=== PATIENT | male | born 1955 | race Caucasian/White ===

== ENCOUNTER 2019-11-06 10:52 | Inpatient (IN) | payer MEDICARE, OTHER ==
[~2019-11-06] VITALS: Ht 177.8 cm; Wt 81.6 kg
[2019-11-06] VITALS (11 sets, daily range): BP systolic 80–117; BP diastolic 57–85
[2019-11-06] MEDS ORDERED: DILTIAZEM HCL VIAL 5 ML ONE (11:20)
[2019-11-06] MEDS ORDERED: VITAMIN D250 MCG PO (11:29)
[2019-11-06] MEDS ORDERED: HYDROCHLOROTHIA25 MG PO (11:29)
[2019-11-06] MEDS ORDERED: METOPROLOL TART50 MG PO (11:29)
[2019-11-06] MEDS ORDERED: XARELTO20 MG PO (11:29)
[2019-11-06] MEDS ORDERED: ATORVASTATIN CA20 MG PO (11:29)
[2019-11-06] MEDS ORDERED: AMITRIPTYLINE H10 MG PO (11:29)
[2019-11-06] MEDS ORDERED: FLOMAX0.4 MG PO (11:29)
[2019-11-06] MEDS ORDERED: DILTIAZEM HCL 5 MG/ML 5 ML VIAL IV ONE (11:30)
[2019-11-06 11:34] LABS: BASOPHILS % 0.2 % (0.0-1.0); EOSINOPHILS % 0.2 % (0.0-6.0); HEMATOCRIT 33.7 % (38.2-49.6); HEMOGLOBIN 10.7 g/dL (14.0-18.0); LYMPHOCYTES % 5.3 % (18.0-39.1); MEAN CORPUSCULAR HEMOGLOBIN 27.3 pg (28-32); MEAN CORPUSCULAR HGB CONC 31.8 g/dL (31-35); MONOCYTES # (AUTO) 2.4 (0.2-0.8); MONOCYTES % 12.3 % (4.4-11.3); NEUTROPHILS # (AUTO) 15.9 (2.1-6.9); PLATELET COUNT 287 x10e3/uL (140-360); RED BLOOD COUNT 3.92 x10e6/uL (4.3-5.7); RED CELL DISTRIBUTION WIDTH 13.4 % (11.7-14.4)
[2019-11-06] MEDS ORDERED: AMIODARONE HCL 900 MG in DEXTROSE 5% 500ML 500 ML IV SCH (11:45)
[2019-11-06] MEDS ORDERED: NEXTERONE IV 150MG/100ML PREMIX BAG IV SCH (11:45)
[2019-11-06 12:13] LABS: INR 3.4
[2019-11-06 12:14] LABS: PARTIAL THROMBOPLASTIN TIME 68.9 seconds (23.8-35.5)
[2019-11-06 12:15] LABS: ALBUMIN 3.1 g/dL (3.5-5.0); ALBUMIN/GLOBULIN RATIO 0.7 (0.8-2.0); CALCIUM 9.3 mg/dL (8.4-10.2); CREATININE, SERUM 1.47 mg/dL (0.72-1.25)
[2019-11-06 12:33] LABS: ANION GAP 16.8 mmol/L (8-16)
[2019-11-06 12:34] LABS: POTASSIUM 2.8 mmol/L (3.5-5.1)
[2019-11-06] MEDS ORDERED: POTASSIUM CHLORIDE 20 MEQ TAB CR PO STA (12:46)
--- NOTE | 2019-11-06 12:52 | Diagnostic Imaging Report ---
EXAM: CHEST SINGLE (PORTABLE) DATE: 11/06/2019 11:20 AM INDICATION: Shortness of breath, weakness COMPARISON: None Impression: The trachea is midline. The lungs are symmetrically expanded without evidence for large focal consolidation, pneumothorax, or significant pleural effusion. The cardiac silhouette appears prominent which may be secondary to technique. Tortuosity/ectasia noted of the thoracic aorta. No acute osseous abnormality is identified. Signed by: Dr. Marcial Landaverde MD on 11/06/2019 12:48 PM
[2019-11-06 13:01] LABS: CREATINE KINASE MB 5.4 ng/mL (0-5.0)
[2019-11-06] MEDS ORDERED: SODIUM CHLORIDE 0.9% 1000ML 1,000 ML IV STA (13:11)
[2019-11-06] MEDS ORDERED: CEFTRIAXONE SOD 1 GM/NS 50 ML 50 ML IV ONE (13:15)
[2019-11-06] MEDS ORDERED: ACETAMINOPHEN 650 MG SUPP PR ONE (13:27)
[2019-11-06] MEDS ORDERED: CEFTRIAXONE SOD 1 GM VIAL ONE (13:27)
[2019-11-06] MEDS ORDERED: ACETAMINOPHEN 325 MG SUPP PR ONE (13:45)
[2019-11-06] MEDS ORDERED: VANCOMYCIN 1GM/NS 250 ML 250 ML IV ONE (15:00)
[2019-11-06 15:22] LABS: BILIRUBIN,URINE 1+ (NEGATIVE); CLARITY,URINE TURBID (CLEAR); COLOR,URINE RED (YELLOW); KETONES,URINE 1+ (NEGATIVE); LEUKOCYTE ESTERASE ,URINE NEGATIVE (NEGATIVE); NITRITE,URINE NEGATIVE (NEGATIVE); PROTEIN,URINE DIPSTICK >=300 (NEGATIVE); RBC,URINE 21-50 /HPF (0-5); URINE UROBILINOGEN 0.2 mg/dL (0.2 - 1)
[2019-11-06] MEDS ORDERED: MORPHINE SULFATE 2 MG/ML SYR 1ML IV PRN (16:30)
[2019-11-06] MEDS ORDERED: DIGOXIN INJ 0.25 MG/ML 2 ML AMP IV PRN (16:45)
[2019-11-06] MEDS ORDERED: CEFEPIME 1GM/NS 0.9% 50 ML 50 ML IV SCH (17:00)
[2019-11-06 17:04] LABS: BASOPHILS % 0.1 % (0.0-1.0); EOSINOPHILS # (AUTO) 0.2 (0.0-0.4); HEMATOCRIT 32.9 % (38.2-49.6); HEMOGLOBIN 10.1 g/dL (14.0-18.0); LYMPHOCYTES # (AUTO) 1.3 (1.0-3.2); LYMPHOCYTES % 17.8 % (18.0-39.1); MEAN CORPUSCULAR HEMOGLOBIN 27.7 pg (28-32); MEAN CORPUSCULAR HGB CONC 30.7 g/dL (31-35); MEAN CORPUSCULAR VOLUME 90.1 fL (81-99); MONOCYTES # (AUTO) 0.2 (0.2-0.8); MONOCYTES % 2.9 % (4.4-11.3); NEUTROPHILS # (AUTO) 5.5 (2.1-6.9); NEUTROPHILS % 75.7 % (38.7-80.0); PLATELET COUNT 203 x10e3/uL (140-360); RED BLOOD COUNT 3.65 x10e6/uL (4.3-5.7); RED CELL DISTRIBUTION WIDTH 13.6 % (11.7-14.4)
[2019-11-06] MEDS ORDERED: LORAZEPAM INJ 2 MG/ML VIAL ONE (17:26)
[2019-11-06] MEDS: METOPROLOL TARTRATE 50 MG TAB PO SCH (17:30)
[2019-11-06] MEDS: LORAZEPAM INJ 2 MG/ML VIAL IV PRN (17:31)
[2019-11-06] MEDS ORDERED: ONDANSETRON HCL INJ 2MG/ML 2ML 2 MG/ML VIAL IV PRN (17:45)
--- NOTE | 2019-11-06 17:46 | Consultation ---
DATE OF CONSULTATION: HISTORY OF PRESENT ILLNESS: This is a 64-year-old white male, comes into the emergency room with shortness of breath. The patient who does not provide good information and was brought here with shortness of breath and cough. The patient comes in with the above complaint, where in the mid of COVID-19 epidemic. The patient is being admitted with shortness of breath. On admission, his white count 19.6, hemoglobin 10. Sodium 137, potassium 2.8, creatinine 1.47. Liver enzyme within normal limit. CK 864, had a chest x-ray, which showed symmetrical expanding without evidence of large consolidation. MEDICATION LIST: The patient is currently on: 1. Amiodarone. 2. Cefepime. 3. Vancomycin. REVIEW OF SYSTEMS: The patient is in short of breath, has fever. The patient is currently being sick for some time. PAST MEDICAL HISTORY: Congestive heart failure. PAST SURGICAL HISTORY: Denies. ALLERGIES: NKA. SOCIAL HISTORY: There is no smoking, drug abuse, or alcohol abuse. PHYSICAL EXAMINATION: GENERAL: Currently alert, oriented, febrile. HEENT: Not icteric. NECK: Supple. CHEST: Few rhonchi bilateral. HEART: S1, S2. No S3, S4 or murmur. ABDOMEN: Soft. Bowel sounds present. No tenderness. EXTREMITIES: No edema. SKIN: No rash. IMPRESSION: 1. Sepsis on admission concerned about pneumonia, community acquired, concerned about COVID. 2. Acute on chronic congestive heart failure. I agree with blood cultures, urine cultures, sputum cultures. We will check COVID-19, the supportive care. We will put on vancomycin and cefepime and we will wait for the blood cultures. Recheck CBC. Recheck Chem panel. We will follow. MD CARISA Dean/LORENA /[id number]
[2019-11-06] MEDS: METOPROLOL TARTRATE INJ 1 MG/ML VIAL IV PRN (17:55)
--- NOTE | 2019-11-06 17:57 | Consultation ---
DATE OF CONSULTATION: Pulmonary Critical Care Consultation CHIEF COMPLAINT: Fever, elevated white blood cell count, and urethral bleeding. HISTORY OF PRESENT ILLNESS: The patient is a 64-year-old man. He has a history of a prior nephrectomy for kidney cancer. He also has a history of atrial fibrillation and is on Xarelto. Approximately 6 weeks ago, he was hospitalized at [facility] for urological problems. He had an indwelling Lanza catheter when he was sent home. Over the past several days, he has had some increased temperature. He has had increased malaise and some lower abdominal pain. He has not had any nausea or vomiting. He has not had any dyspnea or cough. Apparently, he pulled out his Lanza this morning and when he came to the emergency department, he had some urethral bleeding. The emergency department placed a coude catheter, but he has continued to bleed from the urethra around the catheter. PAST SURGICAL HISTORY: 1. Status post nephrectomy. 2. Possible history of prior interventions for benign prostatic hypertrophy. PAST MEDICAL HISTORY: 1. Atrial fibrillation. 2. Benign prostatic hypertrophy. 3. Hypercholesterolemia. ALLERGIES: THERE ARE NO KNOWN DRUG ALLERGIES. FAMILY HISTORY: Noncontributory. SOCIAL HISTORY: There is no information available right now about his smoking or drinking. REVIEW OF SYSTEMS: The patient did have fevers at home. He may have had some increased confusion. He is not having headache or neck pain. He denies chest pain or cough. He is not having any abdominal pain. He denies nausea or vomiting. He does have urethral bleeding and pain in his urethral area. He has a coude catheter in place. He is not having any focal neurological problems. PHYSICAL EXAMINATION: VITAL SIGNS: The T-max is 101.7. The heart rate is 132, but irregularly irregular. The blood pressure is 104/78. Respiratory rate is normal. Saturation is 100% on room air. HEENT: Shows no facial swelling or erythema. LYMPHATIC: Shows no submandibular, cervical, or supraclavicular adenopathy. CARDIAC: Reveals an irregularly irregular rhythm with a normal S1 and S2. There are no murmurs or rubs heard. RESPIRATORY: Auscultation of lungs reveal decreased breath sounds at the bases. There is no wheezing. ABDOMEN: Soft and nontender. There is no rebound or guarding. EXTREMITIES: Show no leg edema or calf tenderness. There is a coude catheter in place. There is bleeding from the urethral meatus around the catheter. There is about 200 mL of blood under his genital area on the bed. NEUROLOGICAL: Shows no focal abnormalities. LABORATORY DATA: White blood cell count is 19.6, hemoglobin is 10.7, and the platelet count is 287. The BUN to creatinine ratio is 16 to 1.47. The potassium is 2.8 and the albumin is 3.1. RADIOGRAPHIC DATA: Chest x-ray shows no active disease. IMPRESSION: 1. Urinary tract infection with indwelling catheter and sepsis present on admission. 2. Anemia secondary to acute blood loss from urethral bleeding. 3. Urethral trauma with ongoing bleeding. 4. Acute kidney injury. 5. Hypokalemia. 6. Atrial fibrillation with rapid ventricular response. PLAN: 1. The patient will be gilmore cultured and received broad-spectrum antibiotics to cover for healthcare-acquired organisms. 2. IV fluids in conjunction with the sepsis protocol. 3. Monitor lactic acid. 4. Type and cross for packed red blood cells. 5. Monitor blood counts and transfuse as needed. 6. Stat Urology consultation. 7. Case discussed with the emergency department staff and nursing staff as well as with the patient and Dr. Sabillon. Myles Olson MD [facility]/LORENA /[id number]
[2019-11-06 18:33] LABS: LYMPHOCYTES % (MANUAL) 20 % (19-48); MONOCYTES % (MANUAL) 1 % (3.4-9.0); NEUTROPHILS % (MANUAL) 79 % (40-74); PLATELET ESTIMATE ADEQUATE; PLATELET MORPHOLOGY COMMENT FEW GIANT; RBC MORPHOLOGY COMMENT NORMAL
[2019-11-06] MEDS: DIGOXIN INJ 0.25 MG/ML 2 ML AMP IV SCH ×2 (20:00→22:00)
[2019-11-06] MEDS ORDERED: ATORVASTATIN 20 MG TAB PO SCH (21:00)
[2019-11-06] MEDS ORDERED: POTASSIUM CHLORIDE 20MEQ/100ML 200 ML IV ONE (21:15)
[2019-11-06] MEDS ORDERED: SODIUM CHLORIDE 0.9% 1000ML 500 ML IV ONE (21:15)
[2019-11-06] MEDS ORDERED: SODIUM CHLORIDE 0.9% 1000ML 1,000 ML ONE (21:15)
[2019-11-06 21:54] LABS: BASOPHILS # (AUTO) 0.1 (0.0-0.1); BASOPHILS % 0.2 % (0.0-1.0); EOSINOPHILS # (AUTO) 0.2 (0.0-0.4); EOSINOPHILS % 0.5 % (0.0-6.0); HEMATOCRIT 27.6 % (38.2-49.6); HEMOGLOBIN 8.7 g/dL (14.0-18.0); LYMPHOCYTES # (AUTO) 0.6 (1.0-3.2); LYMPHOCYTES % 1.8 % (18.0-39.1); MEAN CORPUSCULAR HEMOGLOBIN 27.4 pg (28-32); MEAN CORPUSCULAR HGB CONC 31.5 g/dL (31-35); MEAN CORPUSCULAR VOLUME 87.1 fL (81-99); MONOCYTES % 6.1 % (4.4-11.3); NEUTROPHILS # (AUTO) 29.8 (2.1-6.9); NEUTROPHILS % 90.1 % (38.7-80.0); PLATELET COUNT 225 x10e3/uL (140-360); RED BLOOD COUNT 3.17 x10e6/uL (4.3-5.7); RED CELL DISTRIBUTION WIDTH 13.5 % (11.7-14.4)
[2019-11-06] MEDS ORDERED: LIDOCAINE JELLY 2% 10ML URO-JET TOP ONE (22:15)
[2019-11-06 22:18] LABS: CREATINE KINASE MB 29.1 ng/mL (0-5.0)
[2019-11-06] MEDS ORDERED: IOPAMIDOL 370 MG/ML 200 ML INFUS..BTL INJ ONE (22:58)
[2019-11-06] MEDS ORDERED: SODIUM CHLORIDE 0.9% 250ML 250 ML ONE (22:59)
[2019-11-07] VITALS (18 sets, daily range): BP systolic 78–124; BP diastolic 58–86
--- NOTE | 2019-11-07 01:43 | Diagnostic Imaging Report ---
EXAM: CT abdomen and pelvis without and with contrast - Hematuria protocol INDICATION: Hematuria. COMPARISON: None. TECHNIQUE: Abdomen and pelvis were scanned in prone position without and with contrast. Delayed phase imaging obtained. Coronal and sagittal reformations were obtained. Routine protocol was performed. Scan was performed when during portal venous phase. IV CONTRAST: 150 mL of Isovue 150 ORAL CONTRAST: Water RADIATION DOSE: Total DLP: 1349 mGy*cm COMPLICATIONS: None FINDINGS: LINES and TUBES: A Lanza catheter has been partially retracted, and the bulb terminates within the posterior urethra. Multiple foci of urethral and periurethral soft tissue air are identified. For example, foci of air within the left aspect of the penis on series 56, image 27 and 189. Surrounding soft tissue edema. LOWER THORAX: Patchy opacities in the left lower lobe. Patchy consolidative opacities in the right lower lobe. Coronary atherosclerosis. Moderate cardiomegaly. HEPATOBILIARY: There is an area of geographic hypoattenuation measuring up to 3.8 x 6.1 x 3.0 cm on postcontrast images involving the left hepatic lobe and possibly exerting mass effect on the caudate lobe (coronal series 701, image 50). Additional subcentimeter hepatic hypodensities are too small to characterize, but likely represent cysts. There is mild intrahepatic ductal dilatation. The CBD is mildly dilated, measuring up to 7 mm. GALLBLADDER: The gallbladder is distended without evidence of radiopaque stone or surrounding inflammatory changes. SPLEEN: No splenomegaly. PANCREAS: No focal masses or ductal dilatation. ADRENALS: No adrenal nodules KIDNEYS/URETERS: There is left perinephric stranding with striated nephrogram and areas of hypoenhancement. No discrete abscess. Status post right nephrectomy. No evidence of stone, hydronephrosis, or mass. Left mid and distal ureter are not opacified on initial contrast views and partially opacified on delayed images. No evidence of urothelial lesion. GI TRACT: No abnormal distention, wall thickening, or evidence of bowel obstruction. Rightward deviation of the right hemicolon secondary to right nephrectomy changes. Appendix is unremarkable. Small hiatal hernia. PELVIS: The bladder is not well opacified. There is heterogeneous hyperdense material layering dependently within the bladder. Distended bladder. Mild segmental wall thickening in the bladder. The prostate is enlarged, measuring up to 6.4 x 6.5 cm. LYMPH NODES: No lymphadenopathy. VESSELS: Chronic focal dissection within the left distal abdominal aorta proximal to the bifurcation, as seen on series 6, image 1:15. Diffuse aneurysmal dilatation extending from the suprarenal abdominal aorta, which measures up to 3.9 cm, to the infrarenal abdominal aorta, which measures up to 3.4 cm. The aortic bifurcation measures up to 2.3 cm. Ectatic descending thoracic aorta, measuring up to 4 cm. Ectatic origin of the left internal iliac artery, measuring up to 1.6 cm. Tortuous celiac artery and branch vessels. Moderate calcified and noncalcified plaque within the abdominal aorta and branch vessels. There are punctate foci of air within the left common femoral vein and branch vessels of the right common femoral vein, likely iatrogenic. PERITONEUM / RETROPERITONEUM: No free air or fluid. BONES AND SOFT TISSUES: No acute bony findings or suspicious lytic or blastic lesions. Surgical clip status post lower anterior abdominal wall hernia repair. See lines and tubes section above. IMPRESSION: Traumatic partial retraction of the Lanza catheter, with the bulb terminating in the posterior urethra. Numerous foci of air throughout the urethra, periurethral soft tissues, and within the penis, suggestive of urethral injury. Layering heterogeneous material within the bladder, compatible with hemorrhagic products. Suggest clinical correlation and urology consultation. Findings compatible with cystitis and left pyelonephritis. No evidence of hydronephrosis or stone. Distended bladder with prostatomegaly, suggestive of bladder outlet obstruction. Ectatic distal descending thoracic aorta. Aneurysmal suprarenal and infrarenal abdominal aorta, measuring up to 3.9 cm. Ectatic small left internal iliac artery. Focal dissection within the distal descending abdominal aorta, likely chronic. Comparison with prior imaging would be helpful. If not available, recommend follow-up aortic protocol CTA of the chest, abdomen, and pelvis. Mild intrahepatic ductal dilatation with mild CBD dilatation. Mildly dilated gallbladder without evidence of cholecystitis or stone. Recommend correlation with LFTs and MRCP if clinically indicated. Geographic hypoattenuation on postcontrast images involving the left hepatic lobe, which may represent hepatic lesion or potentially focal fatty infiltration. Recommend follow-up nonemergent liver protocol MRI or CT for further evaluation. The above findings were discussed with [facility] Fadumo Cannon, who indicated the communication was understood, on 11/07/2019 at 133AM. Signed by: Dr. Vee Ortega MD on 11/07/2019 1:40 AM
[2019-11-07 05:12] LABS: BASOPHILS % 0.1 % (0.0-1.0); EOSINOPHILS # (AUTO) 0.2 (0.0-0.4); EOSINOPHILS % 0.6 % (0.0-6.0); HEMATOCRIT 24.4 % (38.2-49.6); LYMPHOCYTES # (AUTO) 1.2 (1.0-3.2); LYMPHOCYTES % 4.1 % (18.0-39.1); MEAN CORPUSCULAR HEMOGLOBIN 27.7 pg (28-32); MEAN CORPUSCULAR HGB CONC 32.4 g/dL (31-35); MEAN CORPUSCULAR VOLUME 85.6 fL (81-99); MONOCYTES # (AUTO) 2.3 (0.2-0.8); MONOCYTES % 7.7 % (4.4-11.3); NEUTROPHILS # (AUTO) 25.5 (2.1-6.9); PLATELET COUNT 218 x10e3/uL (140-360); RED BLOOD COUNT 2.85 x10e6/uL (4.3-5.7); RED CELL DISTRIBUTION WIDTH 13.5 % (11.7-14.4)
[2019-11-07] MEDS: METOPROLOL TARTRATE 50 MG TAB PO SCH ×4 (05:13→18:00)
[2019-11-07] MEDS ORDERED: MEROPENEM 1 GM VIAL ONE (05:20)
[2019-11-07] MEDS ORDERED: SODIUM CHLORIDE 0.9% 100 ML ONE (05:21)
[2019-11-07 05:25] LABS: ALBUMIN 2.4 g/dL (3.5-5.0); ALBUMIN/GLOBULIN RATIO 0.7 (0.8-2.0); ANION GAP 13.4 mmol/L (8-16); CALCIUM 7.8 mg/dL (8.4-10.2); CREATININE, SERUM 1.82 mg/dL (0.72-1.25); MAGNESIUM 1.7 MG/DL (1.3-2.1); PHOSPHORUS 3.1 MG/DL (2.3-4.7); POTASSIUM 3.4 mmol/L (3.5-5.1)
[2019-11-07 05:36] LABS: CREATINE KINASE MB 79.2 ng/mL (0-5.0)
[2019-11-07 05:40] LABS: CHOL/HDL RATIO 2.9 (3.9-4.7)
[2019-11-07 05:57] LABS: HEMOGLOBIN 7.9 g/dL (14.0-18.0)
[2019-11-07] MEDS ORDERED: MEROPENEM 1GRAM 1 GM in SODIUM CHLORIDE 0.9% 100 ML 100 ML IV SCH (06:00)
[2019-11-07 06:35] LABS: DIGOXIN 0.69 ng/mL (0.8-2.0); THYROID STIMULATING HORMONE 0.646 uIU/mL (0.350-4.940)
[2019-11-07] MEDS ORDERED: FAMOTIDINE 20 MG TAB PO SCH (07:30)
[2019-11-07] MEDS ORDERED: SODIUM CHLORIDE 0.9% 250ML 250 ML IV ONE (08:10)
[2019-11-07] MEDS: AMITRIPTYLINE HCL 10 MG TAB PO SCH (08:31)
[2019-11-07] MEDS: TAMSULOSIN HCL 0.4 MG CAP PO SCH (08:31)
--- NOTE | 2019-11-07 09:29 | Progress Note ---
DATE: SUBJECTIVE: The patient had continued urethral bleeding last night. He required packed red blood cells. Urology was consulted and a pressure dressing was placed over his glans and shaft of his penis. The patient has required additional fluids during the night, but now has a stable blood pressure. He has less urethral bleeding. He is not complaining of cough or dyspnea. He is not requiring oxygen. PHYSICAL EXAMINATION: VITAL SIGNS: The blood pressure is 117/81, saturation is 100%. He is on room air. His pulse is 95. HEENT: Shows no facial swelling or erythema. LYMPHATIC: Shows no submandibular, cervical, or supraclavicular adenopathy. CARDIAC: Reveals regular rate and rhythm with normal S1, S2. LUNGS: Auscultation of lungs shows decreased breath sounds at the bases. There is no wheezing. ABDOMEN: Soft, nontender. There is no rebound or guarding. There is a Lanza catheter in place. There is some blood-tinged urine. EXTREMITIES: He has no leg edema. NEUROLOGIC: There are no focal neurological abnormalities. LABORATORY DATA: White blood cell count is 29.7 and hemoglobin is 7.9. The platelet count is 218. BUN to creatinine ratio is 26 to 1.82. The carbon dioxide is 19, and the potassium is 3.4, albumin is 2.4. RADIOGRAPHIC DATA: CT scan of the abdomen and pelvis shows numerous foci of air throughout the urethra and periurethral soft tissues suggestive of urethral injury. There is heterogeneous material within the bladder compatible with hemorrhage. The patient also has catheter, a balloon terminating in the posterior urethra. There is no hydronephrosis. The bladder is distended and there is an enlarged prostate. There is also a suprarenal and infrarenal abdominal aortic aneurysm, measuring up to 3.9 cm. There is an area of focal dissection in the distal descending abdominal aorta, which appears chronic. There is an abnormality in the liver with hypoattenuation. There are also infiltrates at the lung bases. IMPRESSION: 1. Urinary tract infection with indwelling catheter and sepsis, present on admission. 2. Bilateral pulmonary infiltrates suggestive of possible pneumonia. 3. Urethral trauma with ongoing bleeding. 4. Anemia secondary to acute blood loss. 5. Acute kidney injury. 6. Atrial fibrillation with rapid ventricular response. PLAN: 1. Continue to monitor blood counts and give packed red blood cells as needed. 2. Continue broad-spectrum antibiotics and await culture results. 3. Complete loading dose of amiodarone and switch to p.o. and review by Cardiology. 4. Hold Xarelto. 5. Await results of echocardiogram. 6. Continue to await further input from Urology. 7. Case discussed with night time nanny nursing, dayshift nursing, Infectious Disease and Internal Medicine. The case also discussed with the patient. Greater than 35 minutes in direct critical care time. MD RAMONA Avitia/LORENA /[id number]
[2019-11-07] MEDS ORDERED: SODIUM CHLORIDE 0.9% 1000ML 1,000 ML IV SCH (09:30)
[2019-11-07] MEDS: LORAZEPAM INJ 2 MG/ML VIAL IV PRN ×2 (09:49→19:38)
[2019-11-07 10:12] LABS: HEMATOCRIT 23.4 % (38.2-49.6); HEMOGLOBIN 7.5 g/dL (14.0-18.0)
--- NOTE | 2019-11-07 10:44 | Consultation ---
DATE OF CONSULTATION: 11/07/2019 Cardiology consultation. REASON FOR CONSULTATION: Atrial fibrillation. HISTORY OF PRESENT ILLNESS: Mr. Sanz is a 64-year-old gentleman with history of hypertension, BPH, hypercholesteremia, atrial fibrillation, seemingly chronic on systemic anticoagulant therapy with Xarelto. The patient had a prolonged hospital course at [facility] in recent history and had an indwelling Lanza placed. At some point within the past week, he removed his Lanza and had blood in his diaper. He had fevers, chills, malaise as well as lower abdominal pain. He was brought into the emergency room for further care and management. The patient is visibly confused and not a reliable historian. In fact, he is not oriented to where he is at and is not entirely sure what is going on. He is unable to corroborate much history at this time. Very limited history based on predominantly chart review. PAST MEDICAL HISTORY: 1. Atrial fibrillation. 2. BPH. 3. Hypercholesteremia. PAST SURGICAL HISTORY: 1. Prior history of nephrectomy. 2. BPH surgery. FAMILY HISTORY: Unable to be obtained secondary to mental status. SOCIAL HISTORY: Unable to be obtained secondary to mental status. ALLERGIES: NO KNOWN DRUG ALLERGIES. HOME MEDICATIONS: Includes: 1. Atorvastatin 20. 2. Hydrochlorothiazide 12.5 mg daily. 3. Toprol 50 mg b.i.d. 4. Xarelto 20 mg daily. 5. Flomax 0.4 mg at bedtime. 6. Vitamin D tablet daily. REVIEW OF SYSTEMS: Unable to be obtained secondary to mental condition. PHYSICAL EXAMINATION: VITAL SIGNS: Height of 70 inches, weight of 181 pounds, BMI is 25.9, T-max of a 101.7, temperature currently 97.5, pulse of 95, respiratory rate of 16, blood pressure 117/81, O2 saturation 100% on 2 L nasal cannula. GENERAL: This is a confused gentleman, not oriented and does not appear to be in visibly distress. HEENT: Normocephalic and atraumatic. Pupils are equal, round, reactive to light. Extraocular movements are intact. Oropharynx clear. NECK: No elevation of jugular venous pulsation. No carotid bruits. CARDIOVASCULAR: Irregularly irregular rate and rhythm. Normal S1, S2. Soft 2/6 systolic murmur at left lower sternal border. LUNGS: Show some coarse breath sounds bilaterally. No wheezes. ABDOMEN: Soft, nontender. Mild discomfort to the suprapubic area. BACK: No costovertebral angle tenderness. EXTREMITIES: Warm with decreased strength. Diminished pedal pulses. : Positive Lanza place, currently to irrigation. NEUROLOGIC: He is confused. He is alert to only to person. Strength is seemingly diminished, but little bit tremulous. LABORATORY DATA: White count of 29.7, hemoglobin 7.9, hematocrit 24.4, and platelets of 218. Sodium 132, potassium 3.4, chloride 103, bicarb 19, BUN 26, creatinine 1.82, glucose of 130, calcium of 7.8, and AST 103, ALT 31, alkaline phosphatase 55, total protein 5.7, albumin of 2.4. CK is 5388, MB 79.2. Troponin is negative x3 with the last one being 0.046. LDL is 30, HDL is 24, total cholesterol of 69, triglycerides of 73, INR is 3.4. UA shows 21-50 white cells, red turbid urine. Digoxin level is noted to be 0.69. PCR for respiratory viruses pending. IMAGING: CT of the abdomen and pelvis shows traumatic Lanza type changes, ectatic lower abdominal aorta and iliac arteries and other nonspecific changes. Chest x-ray is unremarkable. EKG reveals atrial fibrillation with rapid ventricular response. DIAGNOSES: 1. Severe sepsis, presumably source. 2. Rule out COVID, currently in respiratory isolation. 3. Profound rhabdomyolysis. 4. Hypocalcemia secondary to rhabdo. 5. Atrial fibrillation, chronic. 6. Acute blood loss anemia with source, from traumatic Lanza. PLAN/RECOMMENDATIONS: 1. From a cardiovascular standpoint, we will just recommend rate control therapy. We stop any statin therapy or any medications known to create rhabdo. 2. Advise the nursing staff to start his supplemental intravenous fluids to flush him out. 3. We will recommend Renal Service on board, showing signs of acute kidney injury with a creatinine going from 1.47 to 1.82. 4. management of traumatic Lanza, currently receiving irrigation. 5. For rate control, we can use any AV alix blocking agents. Currently, he is on amiodarone drip, but suspect mechanism is more beta-blockade and will likely be chronic. 6. Once he is out of isolation, we can consider echocardiogram. 7. We will obviously hold off all systemic anticoagulant therapy given his trauma and acute blood loss. MD JOSE Young/LORENA /[id number]
[2019-11-07] MEDS: SODIUM BICARBONATE 8.4% 150 ML in DEXTROSE 5% 1,000 ML IV SCH (15:44)
[2019-11-07] MEDS: MEROPENEM 1GM 100 ML IV SCH (18:25)
--- NOTE | 2019-11-07 18:55 | Progress Note ---
DATE: SUBJECTIVE: Mr. Sanz remains in the intensive care unit. This 64-year-old gentleman with history of hypertension; benign prostatic hypertrophy; hypercholesteremia; atrial fibrillation, on chronic anticoagulation with Xarelto; prolonged hospital course at [facility]; chronic Lanza catheter, comes in with fever and confusion. The patient is currently in the Intensive Care Unit. He was seen by Pulmonary and seen by Cardiology. LABORATORY DATA: Reviewed. His white count came down from 33 to 29 and his hemoglobin 7.5. His sodium 132, potassium 3.4, and creatinine 1.8. Respiratory viral in addition to COVID-19 was sent, result pending. MEDICATIONS: The patient was currently on Elavil and meropenem. PHYSICAL EXAMINATION: GENERAL: Confused. VITAL SIGNS: Stable, afebrile. HEENT: He is not icteric. NECK: Supple. CHEST: Clear. COR: S1 and S2. ABDOMEN: Soft. IMPRESSION: 1. Sepsis on admission, concerned of pyelonephritis. 2. Status post hematuria with traumatic partial retraction of the Lanza catheter with bulb terminating in the posterior urethra. Numerous foci and air throughout the urethra were noted. 3. Left pyelonephritis. I think his CT showing sign of probably congestive heart failure versus inflammatory process from sepsis. Continue meropenem. Adjust his kidney function. Recheck CBC. Recheck Chem panel. Supportive care. We will follow. MD CARISA Dean/MODL /[id number]
[2019-11-07] MEDS ORDERED: AMIODARONE HCL 900 MG in DEXTROSE 5% 500ML 500 ML IV SCH ×2 (20:30→20:45)
[2019-11-07] MEDS ORDERED: AMIODARONE HCL 900 MG in DEXTROSE 5% 500ML 500 ML IV PRN (20:30)
--- NOTE | 2019-11-07 21:11 | Consultation ---
DATE OF CONSULTATION: 11/07/2019 Urology Consultation REASON FOR CONSULTATION: Gross hematuria and traumatic hypospadias. HISTORY OF PRESENT ILLNESS: Benito Sanz Jr. is a 64-year-old man with chronic Lanza catheter. It is unclear to me why he has chronic Lanza catheter, but I am assuming it is for urinary retention. The patient apparently pulled out his Lanza catheter and had bleeding from the urethral meatus. He has also had what looks like a traumatic hypospadias. The emergency room replaced the Lanza catheter with only a 14-Portuguese in size due to the fact that they were getting some resistance upon attempting to start a 16-Portuguese Lanza catheter. Information is obtained from nursing staff and from observation through the window due to the fact that the patient is currently a rule out COVID. The patient had a recent hospitalization at [facility] and went home with a Lanza catheter. PAST MEDICAL AND SURGICAL HISTORY: 1. Atrial fibrillation. 2. Possible congestive heart failure. 3. BPH. 4. Dyslipidemia. 5. Status post nephrectomy for reason not currently known to me. ALLERGIES: NONE KNOWN. CURRENT MEDICATIONS: Please refer to the MAR. SOCIAL HISTORY: The patient currently does not smoke nor use any drugs. FAMILY HISTORY: Noncontributory to the active urological problems. REVIEW OF SYSTEMS: Believed to be with above history of present illness and past medical history, otherwise negative for all systems. PHYSICAL EXAMINATION: GENERAL: Elderly man lying in bed, no apparent distress. He is currently afebrile. VITAL SIGNS: Currently stable. ABDOMEN: Soft, nondistended. GENITOURINARY: There is what appears to be traumatic hypospadias. There is some minimal bleeding around it. The Lanza catheter is a 24-Portuguese Lanza catheter, it is a 3-way with the continuous irrigation hooked up but not running. There is blood tinged urine output. For the remaining physical examination systems, please refer to admission history and physical on the chart. LABORATORY STUDIES: Urine culture and blood cultures are preliminarily negative. The patient's white blood cell count is 29,690, hemoglobin 7.9, platelets 218,000. The patient's sodium is low at 132, his potassium is low at 3.4, creatinine is high at 1.82. The patient is coagulopathic with an INR of 3.40. Testing for coronavirus is pending. ASSESSMENT: 1. Leukocytosis. 2. Anemia. 3. Hyponatremia. 4. Hypokalemia. 5. Acute on chronic renal insufficiency. 6. Hematuria. 7. Coagulopathy. 8. Solitary kidney. 9. Probable pyelonephritis from the findings of the CT scan that was done with and without contrast despite the abnormal creatinine. PLAN: 1. Continue irrigation and use manual irrigation as needed. 2. Antibiotics. 3. Follow up on cultures. 4. Follow up on renal function due to receiving contrast with elevated creatinine. Thank you very much for involving us in the care of your patient. We will be happy to follow along with you as well as him. Siddharth Schneider MD [place]/[facility] /[id number] cc: Siddharth Schneider MD
[2019-11-08] VITALS (17 sets, daily range): BP systolic 92–152; BP diastolic 51–98
[2019-11-08] MEDS: METOPROLOL TARTRATE INJ 1 MG/ML VIAL IV PRN (01:00)
[2019-11-08] MEDS: SODIUM BICARBONATE 8.4% 150 ML in DEXTROSE 5% 1,000 ML IV SCH ×2 (01:14→10:15)
[2019-11-08 06:17] LABS: BASOPHILS % 0.2 % (0.0-1.0); EOSINOPHILS % 0.1 % (0.0-6.0); HEMATOCRIT 25.3 % (38.2-49.6); HEMOGLOBIN 8.2 g/dL (14.0-18.0); LYMPHOCYTES # (AUTO) 0.9 (1.0-3.2); LYMPHOCYTES % 5.2 % (18.0-39.1); MEAN CORPUSCULAR HEMOGLOBIN 27.2 pg (28-32); MEAN CORPUSCULAR HGB CONC 32.4 g/dL (31-35); MEAN CORPUSCULAR VOLUME 84.1 fL (81-99); MONOCYTES # (AUTO) 1.5 (0.2-0.8); MONOCYTES % 8.7 % (4.4-11.3); NEUTROPHILS # (AUTO) 14.5 (2.1-6.9); NEUTROPHILS % 84.9 % (38.7-80.0); PLATELET COUNT 238 x10e3/uL (140-360); RED BLOOD COUNT 3.01 x10e6/uL (4.3-5.7); RED CELL DISTRIBUTION WIDTH 13.3 % (11.7-14.4)
[2019-11-08] MEDS: METOPROLOL TARTRATE 50 MG TAB PO SCH ×4 (06:19→17:21)
[2019-11-08] MEDS: MEROPENEM 1GM 100 ML IV SCH ×2 (06:19→17:20)
[2019-11-08 06:29] LABS: INR 1.56; PROTHROMBIN TIME 19.8 seconds (11.9-14.5)
[2019-11-08 06:31] LABS: PARTIAL THROMBOPLASTIN TIME 46.4 seconds (23.8-35.5)
[2019-11-08 06:48] LABS: ALBUMIN 2.5 g/dL (3.5-5.0); ALBUMIN/GLOBULIN RATIO 0.7 (0.8-2.0); CALCIUM 8.4 mg/dL (8.4-10.2); CREATININE, SERUM 1.31 mg/dL (0.72-1.25)
[2019-11-08] MEDS: LORAZEPAM INJ 2 MG/ML VIAL IV PRN (08:15)
[2019-11-08] MEDS ORDERED: POTASSIUM CHLORIDE 20 MEQ TAB CR PO ONE (08:30)
[2019-11-08] MEDS ORDERED: POTASSIUM CHLORIDE 20MEQ/100ML 100 ML IV ONE (08:30)
[2019-11-08] MEDS ORDERED: ENOXAPARIN SOD INJ 60 MG/0.6 ML SYR SC SCH (09:00)
[2019-11-08] MEDS: TAMSULOSIN HCL 0.4 MG CAP PO SCH (09:35)
[2019-11-08] MEDS: FAMOTIDINE 20 MG TAB PO SCH (09:35)
[2019-11-08] MEDS: ENOXAPARIN SOD INJ 60 MG/0.6 ML SYR SC SCH (09:35)
[2019-11-08] MEDS: AMITRIPTYLINE HCL 10 MG TAB PO SCH (09:35)
--- NOTE | 2019-11-08 10:03 | Diagnostic Imaging Report ---
EXAMINATION: CHEST SINGLE (PORTABLE) INDICATION: ^resp failure ^[id number] ^[id number] COMPARISON: CT abdomen and pelvis 11/06/2019 and chest radiograph on 04/18/2020 FINDINGS: AP view TUBES and LINES: None. LUNGS: Decreased lung volumes. Minimal atelectasis in both lung bases with reticular opacities are unchanged. No new consolidations. No pulmonary edema. PLEURA: Previously noted trace bilateral pleural effusions are not well seen on this exam. No pneumothorax. HEART AND MEDIASTINUM: The cardiac silhouette is enlarged. BONES AND SOFT TISSUES: No acute osseous lesion. Soft tissues are unremarkable. UPPER ABDOMEN: No free air under the diaphragm. IMPRESSION: Worsening decreased lung volumes with unchanged bibasilar atelectasis and subpleural reticulation of the lungs likely representing chronic interstitial lung disease. Signed by: Dr. Twyla Mccauley M.D. on 11/08/2019 10:00 AM
--- NOTE | 2019-11-08 13:04 | Progress Note ---
DATE: SUBJECTIVE: Mr. Sanz seems to be much better today. REVIEW OF SYSTEMS: Negative. PHYSICAL EXAMINATION: GENERAL: He is currently alert. VITAL SIGNS: Stable, currently afebrile. HEENT: Normocephalic. NECK: Supple. CHEST: Clear. COR: S1 and S2. No S3, S4, or murmur. ABDOMEN: Soft. IMPRESSION: 1. Sepsis on admission. 2. Urinary tract infection with pyelonephritis. 3. Gross hematuria with traumatic hypospadias. 4. Atrial fibrillation. 5. Congestive heart failure. 6. Status post nephrectomy. 7. Blood cultures are negative. Urine cultures are negative. White count coming down to 17.5. We are still awaiting on COVID-19, but clinically he looks much better. To continue with meropenem. 8. [id number] kidney disease seems to be better. If COVID-19 comes back negative, he can go regular floor. If positive, continue with droplet isolation. MD CARISA Dean/MODL /[id number]
--- NOTE | 2019-11-08 13:09 | Progress Note ---
DATE: SUBJECTIVE: The patient has less bleeding from his Lanza and his urethra today. He has increased confusion. He is still on amiodarone. His blood pressure has remained stable. PHYSICAL EXAMINATION: VITAL SIGNS: The patient is afebrile. Heart rate is 100 and is irregularly irregular. Saturation is 100% on 4 L. The respiratory rate is 24. The blood pressure is 152/94. HEENT: Shows no facial swelling or erythema. CARDIAC: Reveals irregularly irregular rhythm with a normal S1 and S2. LUNGS: Auscultation of lungs reveals clear breath sounds bilaterally. There is no wheezing. ABDOMEN: Soft and nontender. There is no rebound or guarding. There is a Lanza in place. There is blood-tinged urine in the Lanza bag. There is no leg edema. LABORATORY DATA: BUN to creatinine ratio is 21 to 1.31 and his potassium is 3. The other electrolytes are within normal limits. Albumin is 2.5. The white blood cell count is 17 and hemoglobin is 8.2. The platelet count is 238. IMPRESSION: 1. Urinary tract infection with indwelling catheter and sepsis, present on admission. 2. Atrial fibrillation with rapid ventricular response. 3. Anemia secondary to acute blood loss. 4. Hematuria and urethral trauma. 5. Acute kidney injury. 6. Pulmonary infiltrates suggestive of possible pneumonia. PLAN: 1. Continue current antibiotics. 2. Monitor white blood cell count and await culture results. 3. Complete loading dose of amiodarone and discussed switching the patient to oral amiodarone with Cardiology. 4. Continue to hold Xarelto and monitor coagulation time. 5. Geodon as needed for agitation. 6. Continue isolation until the coronavirus PCR results are available. 7. Case discussed with Urology, nursing staff, and Internal Medicine. Greater than 35 minutes in direct critical care time. Myles Olson MD [facility]/MODL /[id number]
--- NOTE | 2019-11-08 17:20 | Consultation ---
DATE OF CONSULTATION: 11/08/2019 REQUESTING PHYSICIAN: Sulaiman Eagle MD REASON FOR CONSULTATION: Acute kidney injury. HISTORY OF PRESENT ILLNESS: This is a 64-year-old male who originally came in with shortness of breath. He is a poor historian. Apparently there was some chronic confusion. He also has a chronic Lanza apparently. Most of the records are abstracted from the chart. He is under COVID-19 pandemic precautions and testing is pending. Because of the dyspnea, chest x-ray was not showing much of a pneumonia. While he was here, he had pulled it out, there is concern for traumatic hypospadias. Bladder irrigation is being performed with three-way irrigation. Antibiotics have been started. He did receive IV contrast. Creatinine during this admission went from what is known of him, which is about 3 years ago creatinine 0.7 to 1.8 before settling down at 1.3. It appears he is making some urine, but it is unclear how much it is. His CK did go up to 2600. CT scan with IV contrast was done on 11/05. There was also evidence of pyelonephritis on the left side. 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 PAST MEDICAL HISTORY: 1. History of what appears to be a chronic indwelling Lanza at this point after discharge from [facility]. 2. Baseline creatinine 1.47, which went up to 1.82. 3. Atrial fibrillation. 4. BPH. 5. Dyslipidemia. 6. Right nephrectomy. MEDICATIONS: Please see list. REVIEW OF SYSTEMS: He is confused, so cannot be obtained. FAMILY HISTORY: Unable to obtain due to confusion. PHYSICAL EXAMINATION: GENERAL: Seen from a distance, no distress is seen. VITAL SIGNS: Temperature is 98, pulse 110, blood pressure 150s/94. CHEST: Moving symmetrically. EXTREMITIES: No gross swelling. : With indwelling catheter and three-way irrigation. NEURO: Occasionally picking at tubing. SKIN: Minimal ecchymosis near the IV site. LABORATORY DATA: Creatinine 1.3, BUN 21, creatinine yesterday 1.8. K is 3.0, serum CO2 28. Blood cultures were not growing anything. Urine culture is also negative at this time. ASSESSMENT: 1. Acute kidney injury, possibly contrast injury. 2. Appears to be recovering. 3. Minimal muscle breakdown with elevated creatine kinase. 4. At this point, satisfactory electrolytes, acidosis if any is now improved. 5. Currently appears to be nonoliguric, although it is somewhat difficult to measure intake and output given the irrigation. PLAN: From Renal standpoint, leave on IV bicarbonate, serial chemistries. No emergent dialysis. We will follow along. MD FIDEL LevyK/MODL /[id number]
[2019-11-09] VITALS (23 sets, daily range): BP systolic 92–135; BP diastolic 56–99
[2019-11-09] MEDS: SODIUM BICARBONATE 8.4% 150 ML in DEXTROSE 5% 1,000 ML IV SCH (00:24)
[2019-11-09] MEDS: METOPROLOL TARTRATE 50 MG TAB PO SCH ×4 (00:25→22:03)
[2019-11-09] MEDS: MEROPENEM 1GM 100 ML IV SCH ×2 (05:30→17:25)
[2019-11-09 06:02] LABS: BASOPHILS % 0.3 % (0.0-1.0); EOSINOPHILS # (AUTO) 0.1 (0.0-0.4); HEMATOCRIT 25.2 % (38.2-49.6); HEMOGLOBIN 8.1 g/dL (14.0-18.0); LYMPHOCYTES # (AUTO) 1.3 (1.0-3.2); LYMPHOCYTES % 12.7 % (18.0-39.1); MEAN CORPUSCULAR HEMOGLOBIN 27.2 pg (28-32); MEAN CORPUSCULAR HGB CONC 32.1 g/dL (31-35); MEAN CORPUSCULAR VOLUME 84.6 fL (81-99); MONOCYTES # (AUTO) 1.4 (0.2-0.8); MONOCYTES % 13.3 % (4.4-11.3); NEUTROPHILS # (AUTO) 7.4 (2.1-6.9); NEUTROPHILS % 71.6 % (38.7-80.0); PLATELET COUNT 248 x10e3/uL (140-360); RED BLOOD COUNT 2.98 x10e6/uL (4.3-5.7); RED CELL DISTRIBUTION WIDTH 13.6 % (11.7-14.4)
[2019-11-09 06:30] LABS: ALANINE AMINOTRANSFERASE 60 IU/L (0-55); ALBUMIN 2.3 g/dL (3.5-5.0); ALBUMIN/GLOBULIN RATIO 0.7 (0.8-2.0); ALKALINE PHOSPHATASE 56 IU/L (40-150); ANION GAP 11.7 mmol/L (8-16); BLOOD UREA NITROGEN 14 mg/dL (7-26); BUN/CREATININE RATIO 14 (6-25); CALCIUM 7.5 mg/dL (8.4-10.2); CARBON DIOXIDE 31 mmol/L (22-29); CHLORIDE 101 mmol/L (98-107); CREATININE, SERUM 0.98 mg/dL (0.72-1.25); EST GLOMERULAR FILTRATION RATE > 60 ML/MIN (60-); GLUCOSE 121 mg/dL (74-118); SODIUM 141 mmol/L (136-145)
[2019-11-09 06:41] LABS: POTASSIUM 2.7 mmol/L (3.5-5.1)
[2019-11-09 06:44] LABS: MAGNESIUM 1.8 MG/DL (1.3-2.1); PHOSPHORUS 1.2 MG/DL (2.3-4.7)
[2019-11-09] MEDS ORDERED: POTASSIUM CHLORIDE 10MEQ EA PO ONE (08:30)
--- NOTE | 2019-11-09 08:51 | Progress Note ---
DATE: SUBJECTIVE: The patient still has some confusion. He has some urethral bleeding, but it is less. He has no fevers. He was seen by Nephrology yesterday. PHYSICAL EXAMINATION: VITAL SIGNS: Blood pressure is 109/72, saturation is 100% on 4 L. HEENT: Shows no facial swelling or erythema. CARDIAC: Reveals a regular rate and rhythm with normal S1 and S2. LUNGS: Auscultation of lungs reveals rhonchorous breath sounds bilaterally. There is no wheezing. ABDOMEN: Soft, nontender. There is no rebound or guarding. EXTREMITIES: Show no leg edema or calf tenderness. There is no cyanosis or clubbing. SKIN: Shows no rashes. NEUROLOGIC: Shows confusion. LABORATORY DATA: White blood cell count is 10.2, hemoglobin is 8.1, and platelet count is 248. Potassium is 2.7, BUN to creatinine ratio is 14 to 0.98, and phosphorus is 1.2. MICROBIOLOGIC DATA: There is no growth to date. IMPRESSION: 1. Urinary tract infection with indwelling catheter and sepsis, present on admission. 2. Hypokalemia. 3. Hypophosphatemia. 4. Anemia secondary to acute blood loss. 5. Acute kidney injury. 6. Hematuria and urethral trauma. 7. Basal interstitial infiltrates in the lungs of unclear etiology. PLAN: 1. Continue current antibiotics. Monitor white blood cell count and cultures. 2. Continue to monitor mental status and give Geodon if required. 3. Continue to monitor urethral bleeding and blood counts. 4. Await possible cystoscopy or intervention by Urology. 5. Continue to hold Xarelto. Myles Olson MD [facility]/MODL /[id number]
[2019-11-09] MEDS ORDERED: POTASSIUM PHOSPHATE 9 MM in SODIUM CHLORIDE 0.9% 250ML 250 ML IV ONE (09:00)
[2019-11-09] MEDS: FAMOTIDINE 20 MG TAB PO SCH (09:30)
[2019-11-09] MEDS: AMITRIPTYLINE HCL 10 MG TAB PO SCH (09:30)
[2019-11-09] MEDS: TAMSULOSIN HCL 0.4 MG CAP PO SCH (09:30)
[2019-11-09] MEDS: ENOXAPARIN SOD INJ 60 MG/0.6 ML SYR SC SCH (09:30)
[2019-11-09] MEDS: LACTOBACILLUS ACIDOPHILUS CAPSULE PO SCH (16:17)
--- NOTE | 2019-11-09 17:37 | Progress Note ---
DATE: SUBJECTIVE: Mr. Sanz remains in intensive care unit. He is confused. There is some bleeding noted in the Lanza, but it is less. REVIEW OF SYSTEMS: Could not be obtained. PHYSICAL EXAMINATION: GENERAL: He is alert. VITAL SIGNS: Stable, afebrile. HEENT: He is not icteric. NECK: Supple. CHEST: Clear. COR: S1, S2. No S3, S4, or murmur. ABDOMEN: Soft. Blood cultures are negative. Urine culture is pending. His white count came down to 10.5, hemoglobin of 8.1. Sodium 141, potassium 2.7. IMPRESSION: 1. Sepsis on admission, pyelonephritis, improving. No pathogen. Continue with meropenem. Electrolyte abnormality to be corrected. 2. Anemia. 3. Acute kidney injury. 4. Hematuria with urethral trauma. 5. Hypokalemia to be corrected. COVID-19 is negative, could be transferred to medical floor once clinically stable, can discontinue droplet isolation. MD CARISA Dean/MODL /[id number]
[2019-11-09] MEDS: METOPROLOL TARTRATE INJ 1 MG/ML VIAL IV PRN (19:58)
[2019-11-10] VITALS (10 sets, daily range): BP systolic 96–130; BP diastolic 51–81
[2019-11-10 05:27] LABS: BASOPHILS % 0.3 % (0.0-1.0); EOSINOPHILS # (AUTO) 0.1 (0.0-0.4); HEMATOCRIT 23.5 % (38.2-49.6); HEMOGLOBIN 7.5 g/dL (14.0-18.0); LYMPHOCYTES # (AUTO) 1.7 (1.0-3.2); MEAN CORPUSCULAR HEMOGLOBIN 26.9 pg (28-32); MEAN CORPUSCULAR HGB CONC 31.9 g/dL (31-35); MEAN CORPUSCULAR VOLUME 84.2 fL (81-99); MONOCYTES # (AUTO) 1.6 (0.2-0.8); MONOCYTES % 16.6 % (4.4-11.3); NEUTROPHILS # (AUTO) 6.3 (2.1-6.9); NEUTROPHILS % 63.5 % (38.7-80.0); PLATELET COUNT 254 x10e3/uL (140-360); RED BLOOD COUNT 2.79 x10e6/uL (4.3-5.7); RED CELL DISTRIBUTION WIDTH 13.6 % (11.7-14.4)
[2019-11-10 05:47] LABS: ANION GAP 13.2 mmol/L (8-16); BLOOD UREA NITROGEN 14 mg/dL (7-26); BUN/CREATININE RATIO 15 (6-25); CALCIUM 7.7 mg/dL (8.4-10.2); CARBON DIOXIDE 31 mmol/L (22-29); CHLORIDE 100 mmol/L (98-107); CREATININE, SERUM 0.91 mg/dL (0.72-1.25); EST GLOMERULAR FILTRATION RATE > 60 ML/MIN (60-); GLUCOSE 115 mg/dL (74-118); POTASSIUM 3.2 mmol/L (3.5-5.1); SODIUM 141 mmol/L (136-145)
[2019-11-10 05:48] LABS: INR 1.26; PROTHROMBIN TIME 16.6 seconds (11.9-14.5)
[2019-11-10] MEDS: METOPROLOL TARTRATE 50 MG TAB PO SCH ×3 (05:51→21:53)
[2019-11-10] MEDS: MEROPENEM 1GM 100 ML IV SCH ×2 (05:51→17:00)
[2019-11-10 06:19] LABS: PHOSPHORUS 1.8 MG/DL (2.3-4.7)
[2019-11-10 06:54] LABS: LYMPHOCYTES % (MANUAL) 21 % (19-48); MONOCYTES % (MANUAL) 13 % (3.4-9.0); NEUTROPHILS % (MANUAL) 66 % (40-74)
[2019-11-10 06:55] LABS: HYPOCHROMASIA MODERATE; POLYCHROMASIA MODERATE
[2019-11-10 06:57] LABS: PLATELET ESTIMATE ADEQUATE; PLATELET MORPHOLOGY COMMENT FEW LARGE
[2019-11-10] MEDS: AMITRIPTYLINE HCL 10 MG TAB PO SCH (08:23)
[2019-11-10] MEDS: LACTOBACILLUS ACIDOPHILUS CAPSULE PO SCH ×2 (08:23→16:40)
[2019-11-10] MEDS: TAMSULOSIN HCL 0.4 MG CAP PO SCH (08:23)
[2019-11-10] MEDS: ENOXAPARIN SOD INJ 60 MG/0.6 ML SYR SC SCH (08:23)
--- NOTE | 2019-11-10 09:53 | Diagnostic Imaging Report ---
EXAM: Renal Ultrasound INDICATION: Acute kidney injury COMPARISON: None TECHNIQUE: Transverse and longitudinal images of the kidneys and bladder were obtained. FINDINGS: Right Kidney: Status post right nephrectomy. Left Kidney: Length: 13.8 cm Appearance: Normal echogenicity. Collecting system: No hydronephrosis Stones: None Cyst/Mass: None Bladder: Lanza catheter terminates in the bladder. Ureteral jets not visualized. Estimated bladder volume estimate of 437cc. The prostate measures 2.6 x 4.0 x 3.7 cm, volume estimate of 20.3 cc. Incidental right liver 1.7 x 1.8 x 1.6 cm hyperechoic lesion, likely hemangioma. IMPRESSION: Status post right nephrectomy. No left renal calculi or hydronephrosis. Lanza catheter in the bladder. Signed by: Omid Bhakta MD on 11/10/2019 9:50 AM
[2019-11-10] MEDS ORDERED: POTASSIUM CHLORIDE 20 MEQ TAB CR PO SCH (11:00)
--- NOTE | 2019-11-10 11:05 | Progress Note ---
DATE: SUBJECTIVE: The patient is less confused today. He is conversing well. He is asking to go home and states that he never had any urethral bleeding until the Lanza was placed. He says that when the Lanza is removed the bleeding stops. He has no fevers. PHYSICAL EXAMINATION: VITAL SIGNS: The blood pressure is 114/74 and saturation is 100% on 2 L. HEENT: No facial swelling or erythema. CARDIAC: Regular rate and rhythm with normal S1, S2. LUNGS: Auscultation of the lungs reveals decreased breath sounds at the bases. There is no wheezing. ABDOMEN: Soft, nontender. There is no rebound or guarding. EXTREMITIES: No leg edema or calf tenderness. There is no cyanosis or clubbing. SKIN: No rashes. NEUROLOGICAL: No focal abnormalities. LABORATORY DATA: Hemoglobin is 7.5, white blood cell count is 9.87. The platelet count is 254,000. The INR is 1.26 and the PTT is 38.9. IMPRESSION: 1. Urinary tract infection with indwelling catheter and sepsis, present on admission. 2. Metabolic encephalopathy. 3. Anemia secondary to acute blood loss. 4. Acute kidney injury. 5. Hematuria and urethral trauma. PLAN: 1. Complete antibiotics. 2. Further evaluation by Urology. 3. Transfer out of intensive care unit. Myles Olson MD [facility]/[place] /[id number]
--- NOTE | 2019-11-10 18:47 | Progress Note ---
DATE: SUBJECTIVE: Mr. Sanz remains in Intensive Care Unit and confused. REVIEW OF SYSTEMS: According to nursing team, there is nothing new. PHYSICAL EXAMINATION: GENERAL: He is currently alert, confused. VITALS: Stable, afebrile. HEENT: Not icteric. NECK: Supple. CHEST: Clear heart S1, S2. No S3, S4, or murmur. ABDOMEN: Soft. Bowel sounds present. No tenderness. EXTREMITIES: No edema. IMPRESSION: 1. Sepsis on admission, resolving. 2. Urinary tract infection on admission, getting better. 3. White count is coming down to 9.7. 4. COVID-19 is negative. PLAN: From Infectious Disease point of view, could be transferred to regular floor. There is no need for droplet isolation. Continue with supportive care to finish two weeks of antibiotic as ordered. MD CARISA Dean/LORENA /[id number]
[2019-11-11] VITALS (8 sets, daily range): BP systolic 111–129; BP diastolic 64–88
[2019-11-11] MEDS: MEROPENEM 1GM 100 ML IV SCH ×2 (06:00→19:10)
[2019-11-11] MEDS: METOPROLOL TARTRATE 50 MG TAB PO SCH ×3 (06:00→20:41)
[2019-11-11] MEDS: LACTOBACILLUS ACIDOPHILUS CAPSULE PO SCH ×2 (09:07→17:12)
[2019-11-11] MEDS: TAMSULOSIN HCL 0.4 MG CAP PO SCH (09:07)
[2019-11-11] MEDS: ENOXAPARIN SOD INJ 60 MG/0.6 ML SYR SC SCH (09:07)
[2019-11-11] MEDS: AMITRIPTYLINE HCL 10 MG TAB PO SCH (09:07)
--- NOTE | 2019-11-11 11:15 | Progress Note ---
DATE: SUBJECTIVE: The patient was transferred out of the Intensive Care Unit. He is afebrile. He does not have any new complaints. PHYSICAL EXAMINATION: VITAL SIGNS: Stable. HEENT: No facial swelling or erythema. CARDIAC: Regular rate and rhythm with normal S1, S2. LUNGS: Auscultation of lungs shows clear breath sounds bilaterally. There is no wheezing. ABDOMEN: Soft, nontender. There is no rebound or guarding. EXTREMITIES: No leg edema or calf tenderness. There is no cyanosis or clubbing. SKIN: No rashes. IMPRESSION: 1. Urinary tract infection with sepsis, present on admission. 2. Hematuria. 3. Anemia secondary to chronic blood loss. 4. Acute kidney injury. 5. Metabolic encephalopathy. PLAN: 1. Complete antibiotics. 2. Monitor blood counts. 3. Await further input from Urology. Myles Olson MD [facility]/MODL /[id number]
--- NOTE | 2019-11-11 12:05 | Progress Note ---
DATE: 11/11/2019 SUBJECTIVE: The patient is seen and evaluated. REVIEW OF SYSTEMS: The patient has no medical complaints. No nausea, vomiting, fever, chills, chest pain, shortness of breath, headache, dyspepsia, rash. PHYSICAL EXAMINATION: VITAL SIGNS: Temperature 98.0, which has improved from 101.7 on admission and the patient has been afebrile since then, pulse is 86, respiration 20, blood pressure 114/87. MEDICATION LIST: Medication list reviewed as far as Infectious Disease point of view, the patient is on meropenem. LABORATORY STUDIES: No new CBC or BMP. Previous white blood cell was 9.87, improved from 29.69, hemoglobin 7.5, platelet 254. Sodium 141, potassium 3.2 improved from 2.7 with a creatinine level of 0.91. Serology, COVID-19 not detected. MICROBIOLOGY: Blood culture on 11/06/2019 and urine culture on 11/06/2019, negative so far. RADIOLOGY STUDIES: CT suggested left pyelonephritis without evidence of hydronephrosis or stones. Bladder was distended suggestive of bladder outlet obstruction. Chest x-ray from 11/07 showed worsening decreased lung volumes with unchanged bibasilar atelectasis and subpleural reticulation of the lungs likely presenting chronic interstitial lung disease. PHYSICAL EXAMINATION: GENERAL: Alert and oriented, in no acute distress. CV: S1, S2. CHEST: Equal expansion. Clear to auscultation. No acute distress. ABDOMEN: Soft and nontender. No distention. EXTREMITIES: Weak. ASSESSMENT AND PLAN: 1. Sepsis on admission. 2. Urinary tract infection/left pyelonephritis. 3. Fever, resolved. 4. Leukocytosis, resolved. 5. Chronic interstitial lung disease per chest x-ray. 6. COVID-19 testing was not detected. Continue with meropenem. Continue monitoring patient clinically. Continue supportive care. He completed two weeks of meropenem. Please refer to chart for more information. Dictated by Humphrey Murcia PA-C (Al) Jaky Juarez MD /MODL /[id number]
[2019-11-11] MEDS: POTASSIUM CHLORIDE 20 MEQ TAB CR PO SCH ×2 (12:19→18:11)
[2019-11-11] MEDS: ACETAMINOPHEN 325 MG TAB PO PRN (15:49)
[2019-11-12] VITALS (7 sets, daily range): BP systolic 111–135; BP diastolic 59–78
[2019-11-12] MEDS: METOPROLOL TARTRATE 50 MG TAB PO SCH ×3 (05:29→21:52)
[2019-11-12] MEDS: MEROPENEM 1GM 100 ML IV SCH ×2 (05:29→18:24)
[2019-11-12 06:16] LABS: BASOPHILS % 0.3 % (0.0-1.0); EOSINOPHILS # (AUTO) 0.3 (0.0-0.4); EOSINOPHILS % 3.2 % (0.0-6.0); HEMOGLOBIN 7.2 g/dL (14.0-18.0); LYMPHOCYTES # (AUTO) 1.9 (1.0-3.2); MEAN CORPUSCULAR HEMOGLOBIN 27.2 pg (28-32); MEAN CORPUSCULAR HGB CONC 31.3 g/dL (31-35); MEAN CORPUSCULAR VOLUME 86.8 fL (81-99); MONOCYTES % 10.3 % (4.4-11.3); NEUTROPHILS # (AUTO) 6.6 (2.1-6.9); NEUTROPHILS % 64.8 % (38.7-80.0); PLATELET COUNT 406 x10e3/uL (140-360); RED BLOOD COUNT 2.65 x10e6/uL (4.3-5.7); RED CELL DISTRIBUTION WIDTH 13.9 % (11.7-14.4)
[2019-11-12 06:43] LABS: ALANINE AMINOTRANSFERASE 49 IU/L (0-55); ALBUMIN 2.3 g/dL (3.5-5.0); ALBUMIN/GLOBULIN RATIO 0.7 (0.8-2.0); ALKALINE PHOSPHATASE 61 IU/L (40-150); ANION GAP 9.3 mmol/L (8-16); BLOOD UREA NITROGEN 9 mg/dL (7-26); BUN/CREATININE RATIO 11 (6-25); CALCIUM 7.3 mg/dL (8.4-10.2); CARBON DIOXIDE 30 mmol/L (22-29); CHLORIDE 106 mmol/L (98-107); CREATININE, SERUM 0.82 mg/dL (0.72-1.25); EST GLOMERULAR FILTRATION RATE > 60 ML/MIN (60-); GLUCOSE 101 mg/dL (74-118); POTASSIUM 4.3 mmol/L (3.5-5.1); SODIUM 141 mmol/L (136-145)
[2019-11-12 09:16] LABS: EOSINOPHILS % (MANUAL) 2 % (0-7); LYMPHOCYTES % (MANUAL) 17 % (19-48); MONOCYTES % (MANUAL) 7 % (3.4-9.0); NEUTROPHILS % (MANUAL) 74 % (40-74); PLATELET ESTIMATE SLIGHTLY INCREASED; PLATELET MORPHOLOGY COMMENT NORMAL; RBC MORPHOLOGY COMMENT NORMAL
[2019-11-12] MEDS: ENOXAPARIN SOD INJ 60 MG/0.6 ML SYR SC SCH (09:24)
[2019-11-12] MEDS: LACTOBACILLUS ACIDOPHILUS CAPSULE PO SCH ×2 (09:24→17:18)
[2019-11-12] MEDS: TAMSULOSIN HCL 0.4 MG CAP PO SCH (09:24)
[2019-11-12] MEDS: AMITRIPTYLINE HCL 10 MG TAB PO SCH (09:24)
[2019-11-12] MEDS ORDERED: ONDANSETRON HCL 4 MG ORAL DISINTEGRATING TAB PO PRN (11:00)
--- NOTE | 2019-11-12 13:09 | Progress Note ---
DATE: Infectious Disease SUBJECTIVE: A 64-year-old gentleman, male. The patient was seen and evaluated, discussed with staff. Mr. Sanz was admitted complaining of the shortness of breath and cough. Considering the COVID-19 pandemic, the patient was admitted and evaluated for COVID-19, which was not detected. Other serologies all came back negative as well. ALLERGIES: NO KNOWN ALLERGIES. OBJECTIVE: VITAL SIGNS: Temperature 96.4, pulse 82, respiration 18, blood pressure 112/67. GENERAL: Alert and oriented, aphasic a little bit, but not new, no acute distress. CV: S1, S2. CHEST: Equal expansion. Clear to auscultation, no acute distress. ABDOMEN: Soft. Nontender. No distention. HEENT: Moist. No pallor. No JVD. EXTREMITIES: Weak. MEDICATIONS: Medication list reviewed. As far as Infectious Disease point of view, the patient is on Merrem. LABORATORY STUDIES: White blood cells 10.12, hemoglobin 7.2, platelet 406. Creatinine 0.82. Sodium 141, potassium 4.3. MICROBIOLOGY: Blood culture, urine culture negative. RADIOLOGY STUDIES: No new radiology studies available. ASSESSMENT AND PLAN: 1. Sepsis, on admission. 2. Urinary tract infection with a culture negative with pyelonephritis. 3. Benign prostatic hyperplasia, admits transurethral resection of the prostate by notes. 4. Leukocytosis, resolved. 5. COVID-19 negative, not detected. The patient is currently on meropenem. Continue with meropenem for a total of 2 weeks. Please refer to chart for more information. Discussed with Dr. Juarez in details. Dictated by Humphrey Murcia PA-C (Al) Jaky Juarez MD /MODL /[id number]
[2019-11-12 14:37] LABS: % IRON SATURATION 4 % (15-50); IRON 13 ug/dL (65-175); TOTAL IRON BINDING CAPACITY 291 ug/dL (261-478); TRANSFERRIN 208 mg/dL (174-364)
[2019-11-13] VITALS (7 sets, daily range): BP systolic 111–136; BP diastolic 59–78
[2019-11-13] MEDS: MEROPENEM 1GM 100 ML IV SCH ×2 (05:04→17:13)
[2019-11-13] MEDS: METOPROLOL TARTRATE 50 MG TAB PO SCH ×3 (05:05→20:46)
[2019-11-13 05:59] LABS: INR 1.09; PROTHROMBIN TIME 14.8 seconds (11.9-14.5)
[2019-11-13 06:00] LABS: PARTIAL THROMBOPLASTIN TIME 37.7 seconds (23.8-35.5)
[2019-11-13 06:05] LABS: BASOPHILS % 0.3 % (0.0-1.0); EOSINOPHILS # (AUTO) 0.3 (0.0-0.4); EOSINOPHILS % 2.8 % (0.0-6.0); HEMATOCRIT 22.9 % (38.2-49.6); LYMPHOCYTES # (AUTO) 2.1 (1.0-3.2); LYMPHOCYTES % 21.4 % (18.0-39.1); MEAN CORPUSCULAR HEMOGLOBIN 26.1 pg (28-32); MEAN CORPUSCULAR HGB CONC 30.1 g/dL (31-35); MEAN CORPUSCULAR VOLUME 86.7 fL (81-99); MONOCYTES % 10.4 % (4.4-11.3); NEUTROPHILS % 62.3 % (38.7-80.0); PLATELET COUNT 459 x10e3/uL (140-360); RED BLOOD COUNT 2.64 x10e6/uL (4.3-5.7); RED CELL DISTRIBUTION WIDTH 14.3 % (11.7-14.4)
[2019-11-13 06:44] LABS: HEMOGLOBIN 6.9 g/dL (14.0-18.0)
--- NOTE | 2019-11-13 09:58 | Progress Note ---
DATE: SUBJECTIVE: Mr. Sanz seen and evaluated. Discussed with the nurse. Comfortable in bed, in no acute distress. Mr. Sanz was admitted for shortness of breath and cough. COVID-19 was negative, now has some concern of urinary retention and BPH. He was being seen by urologist and needs TURP, which he has been refusing so far. Today, the patient agreed to TURP. REVIEW OF SYSTEMS: No nausea, vomiting, fever, chills, chest pain, shortness of breath, headache, or rash. ALLERGIES: NO KNOWN ALLERGIES. OBJECTIVE: VITAL SIGNS: Temperature is 98, pulse 88, respirations 20, and blood pressure 132/78. GENERAL: Comfortable in bed, aphasic some, but this is not new, comfortable, in no acute distress. CV: S1 and S2. CHEST: Equal expansion, clear to auscultation. No acute distress. HEENT: Moist. No pallor. No JVD. ABDOMEN: Soft and nontender. No distention. EXTREMITIES: Weak. No acute distress, maybe trace edema. MEDICATIONS: Medication is reviewed. As far as Infectious Disease point of view, the patient is on meropenem. LABORATORY STUDIES: White blood cells 9.72, hemoglobin 6.9, and platelet 459. Sodium 141, potassium 4.3, creatinine 0.82. COVID-19 negative on 11/06/2019. MICROBIOLOGY: Urine culture here is negative from 11/06/2019. Also, blood culture negative from 11/06/2019. RADIOLOGY STUDIES: No new radiology studies available. ASSESSMENT AND PLAN: 1. Sepsis on admission, resolved. 2. Urinary tract infection with a negative culture here. 3. Pyelonephritis. 4. Benign prostatic hypertrophy. 5. Leukocytosis. 6. Debility. 7. The patient agreed to transurethral resection of the prostate. 8. Continue Merrem for a total of 2 weeks. 9. Please refer to chart for more information. 10. Discussed with Dr. Juarez. 11. Anemia per others. Dictated by Humphrey Murcia PA-C (Al) Jaky Juarez MD /MODL /[id number]
[2019-11-13] MEDS: LACTOBACILLUS ACIDOPHILUS CAPSULE PO SCH ×2 (09:59→17:03)
[2019-11-13] MEDS: ENOXAPARIN SOD INJ 60 MG/0.6 ML SYR SC SCH (09:59)
[2019-11-13] MEDS: TAMSULOSIN HCL 0.4 MG CAP PO SCH (09:59)
[2019-11-13] MEDS: AMITRIPTYLINE HCL 10 MG TAB PO SCH (09:59)
[2019-11-13] MEDS ORDERED: SODIUM CHLORIDE 0.9% 250ML 250 ML IV ONE (11:30)
[2019-11-13 11:56] LABS: EOSINOPHILS % (MANUAL) 2 % (0-7); LYMPHOCYTES % (MANUAL) 19 % (19-48); MONOCYTES % (MANUAL) 7 % (3.4-9.0); NEUTROPHILS % (MANUAL) 72 % (40-74); PLATELET ESTIMATE SLIGHTLY INCREASED; PLATELET MORPHOLOGY COMMENT NORMAL; RBC MORPHOLOGY COMMENT NORMAL
[2019-11-13] MEDS: IRON SUCROSE 100 MG in SODIUM CHLORIDE 0.9% 100 ML 100 ML IV SCH (12:14)
[2019-11-13] MEDS ORDERED: SODIUM CHLORIDE 0.9% 250ML 250 ML ONE ×2 (12:32→13:59)
[2019-11-13] MEDS: MELATONIN 5 MG TABLET PO SCH (20:46)
[2019-11-14] VITALS (8 sets, daily range): BP systolic 101–121; BP diastolic 64–77
[2019-11-14 05:39] LABS: BASOPHILS % 0.4 % (0.0-1.0); EOSINOPHILS # (AUTO) 0.2 (0.0-0.4); EOSINOPHILS % 2.1 % (0.0-6.0); HEMATOCRIT 26.1 % (38.2-49.6); HEMOGLOBIN 8.4 g/dL (14.0-18.0); LYMPHOCYTES # (AUTO) 2.2 (1.0-3.2); LYMPHOCYTES % 21.7 % (18.0-39.1); MEAN CORPUSCULAR HEMOGLOBIN 27.3 pg (28-32); MEAN CORPUSCULAR HGB CONC 32.2 g/dL (31-35); MEAN CORPUSCULAR VOLUME 84.7 fL (81-99); MONOCYTES % 9.5 % (4.4-11.3); NEUTROPHILS # (AUTO) 6.6 (2.1-6.9); NEUTROPHILS % 64.2 % (38.7-80.0); PLATELET COUNT 528 x10e3/uL (140-360); RED BLOOD COUNT 3.08 x10e6/uL (4.3-5.7); RED CELL DISTRIBUTION WIDTH 14.1 % (11.7-14.4)
[2019-11-14] MEDS: MEROPENEM 1GM 100 ML IV SCH ×2 (05:41→18:38)
[2019-11-14] MEDS: METOPROLOL TARTRATE 50 MG TAB PO SCH ×3 (05:42→20:25)
[2019-11-14] MEDS: AMITRIPTYLINE HCL 10 MG TAB PO SCH (08:52)
[2019-11-14] MEDS: TAMSULOSIN HCL 0.4 MG CAP PO SCH (08:53)
[2019-11-14] MEDS: LACTOBACILLUS ACIDOPHILUS CAPSULE PO SCH ×2 (08:53→16:49)
[2019-11-14] MEDS: MORPHINE SULFATE 2 MG/ML SYR 1ML IV PRN ×2 (09:34→20:15)
--- NOTE | 2019-11-14 10:51 | Progress Note ---
DATE: SUBJECTIVE: Mr. Sanz is a pleasant 64-year-old gentleman, who has history of BPH and urinary retention. The patient admitted with UTI and pyelonephritis. Urine culture was negative. REVIEW OF SYSTEMS: No nausea, vomiting, fever, chills, chest pain, or shortness of breath. OBJECTIVE: VITAL SIGNS: Temperature is 99, pulse 87, respirations 20, blood pressure 109/73. GENERAL: Alert and oriented, no acute distress. CV: S1 and S2. CHEST: Equal expansion. Clear to auscultation. No acute distress. ABDOMEN: Soft and nontender. No distention. HEENT: Moist. No pallor. No JVD. EXTREMITIES: Weak. No acute distress. MEDICATIONS: Medication is reviewed. As far as Infectious Disease point of view, the patient is on meropenem. ALLERGIES: NO KNOWN ALLERGIES. LABORATORY STUDIES: White blood cells 10.3, hemoglobin 8.4, improved from 6.9, platelet count of 528. Sodium is 141, potassium 4.3, creatinine 0.8. SEROLOGY: COVID-19 not detected. As a matter of fact all serologies are negative including adenovirus, influenza, RSV or rhinovirus. In addition to influenza A and B, Mycobacterium pneumonia. MICROBIOLOGY: Blood culture, urine culture negative, both on 11/06/2019. RADIOLOGY: No new radiology studies available. ASSESSMENT AND PLAN: 1. Sepsis on admission. 2. Urinary tract infection with negative culture. 3. Blood culture negative. 4. Pyelonephritis. 5. Benign prostatic hypertrophy. 6. Leukocytosis, resolved. 7. Debility. The patient agreed to TURP, TURP is planned for later on today. We continue with meropenem 2 weeks. I spoke with attending yesterday. The patient probably be transferred to another place for completion of his IV antibiotic. Please refer to chart for more information. Discussed with Dr. Juarez in details. Dictated by Humphrey Murcia PA-C (Al) Jaky Juarez MD /MODL /[id number]
[2019-11-14] MEDS ORDERED: IOPAMIDOL 300MG/ML 50ML INFUS..BTL IV ONE (12:39)
[2019-11-14] MEDS ORDERED: B&O 60MG R/S 60 MG SUPP PR ONE (12:39)
[2019-11-14] MEDS ORDERED: B&O 60MG R/S 60 MG SUPP PR PRN (14:15)
[2019-11-14] MEDS ORDERED: SODIUM CHLORIDE 0.9% 250ML 250 ML ONE (15:39)
[2019-11-14] MEDS: ACETAMINOPHEN/CODEINE 300MG - 30MG TAB PO PRN (16:49)
[2019-11-14] MEDS: PHENAZOPYRIDINE HCL 100 MG TAB PO SCH (16:49)
[2019-11-14] MEDS: IRON SUCROSE 100 MG in SODIUM CHLORIDE 0.9% 100 ML 100 ML IV SCH (17:45)
[2019-11-14] MEDS ORDERED: DEXAMETHASONE SOD PHOS INJ 4 MG/ML VIAL ONE (19:31)
[2019-11-14] MEDS ORDERED: ESMOLOL HCL 100MG/10ML 10 MG/ML VIAL ONE (19:31)
[2019-11-14] MEDS ORDERED: PROPOFOL IV EMULSION 10 MG/ML 20 ML VIAL ONE (19:31)
[2019-11-14] MEDS ORDERED: SEVOFLURANE INHAL SOLN 250 ML PEN BTL ONE (19:31)
[2019-11-14] MEDS ORDERED: ONDANSETRON HCL INJ 2MG/ML 2ML 2 MG/ML VIAL ONE (19:31)
[2019-11-14] MEDS ORDERED: LIDOCAINE HCL 2% LOCAL INJ 5 ML SDV VIAL INJ ONE (19:31)
[2019-11-14] MEDS ORDERED: PHENYLEPHRINE HCL 1% 10 MG/ML VIAL ONE (19:31)
[2019-11-14] MEDS ORDERED: FENTANYL CITRATE/PF 100MCG/2 ML INJ ONE (19:49)
[2019-11-14] MEDS: MELATONIN 5 MG TABLET PO SCH (20:24)
[2019-11-15] VITALS (8 sets, daily range): BP systolic 94–120; BP diastolic 60–72
[2019-11-15] MEDS: MORPHINE SULFATE 2 MG/ML SYR 1ML IV PRN ×4 (04:02→22:42)
[2019-11-15 05:51] LABS: BASOPHILS % 0.1 % (0.0-1.0); HEMATOCRIT 27.3 % (38.2-49.6); HEMOGLOBIN 8.4 g/dL (14.0-18.0); LYMPHOCYTES # (AUTO) 1.7 (1.0-3.2); LYMPHOCYTES % 9.4 % (18.0-39.1); MEAN CORPUSCULAR HEMOGLOBIN 26.5 pg (28-32); MEAN CORPUSCULAR HGB CONC 30.8 g/dL (31-35); MEAN CORPUSCULAR VOLUME 86.1 fL (81-99); MONOCYTES # (AUTO) 1.1 (0.2-0.8); MONOCYTES % 5.8 % (4.4-11.3); NEUTROPHILS # (AUTO) 15.5 (2.1-6.9); NEUTROPHILS % 83.8 % (38.7-80.0); PLATELET COUNT 524 x10e3/uL (140-360); RED BLOOD COUNT 3.17 x10e6/uL (4.3-5.7); RED CELL DISTRIBUTION WIDTH 14.2 % (11.7-14.4)
[2019-11-15 06:22] LABS: ANION GAP 10.9 mmol/L (8-16); CARBON DIOXIDE 24 mmol/L (22-29); CHLORIDE 104 mmol/L (98-107); CREATININE, SERUM 0.95 mg/dL (0.72-1.25); EST GLOMERULAR FILTRATION RATE > 60 ML/MIN (60-); GLUCOSE 100 mg/dL (74-118); POTASSIUM 4.9 mmol/L (3.5-5.1); SODIUM 134 mmol/L (136-145)
[2019-11-15 06:37] LABS: BLOOD UREA NITROGEN 12 mg/dL (7-26); BUN/CREATININE RATIO 13 (6-25); CALCIUM 8.9 mg/dL (8.4-10.2)
[2019-11-15] MEDS: MEROPENEM 1GM 100 ML IV SCH ×2 (06:39→17:44)
[2019-11-15] MEDS: METOPROLOL TARTRATE 50 MG TAB PO SCH ×3 (06:40→22:50)
[2019-11-15] MEDS: LACTOBACILLUS ACIDOPHILUS CAPSULE PO SCH ×2 (07:56→16:56)
[2019-11-15] MEDS: AMITRIPTYLINE HCL 10 MG TAB PO SCH (07:56)
[2019-11-15] MEDS: TAMSULOSIN HCL 0.4 MG CAP PO SCH (07:56)
[2019-11-15] MEDS: PHENAZOPYRIDINE HCL 100 MG TAB PO SCH ×3 (07:56→16:56)
[2019-11-15] MEDS: IRON SUCROSE 100 MG in SODIUM CHLORIDE 0.9% 100 ML 100 ML IV SCH (12:30)
--- NOTE | 2019-11-15 15:37 | Operative Report ---
DATE OF PROCEDURE: 11/14/2019 SURGEON: Siddharth Schneider MD PREOPERATIVE DIAGNOSES: 1. Obstructive benign prostatic hyperplasia. 2. Chronic renal insufficiency. 3. History of right kidney cancer, status post radical nephrectomy. 4. Solitary left kidney. OPERATIONS PERFORMED: Note, these are all staged procedures as part of multi-staged and multi-step process in managing the patient's obstructive BPH. 1. Cystourethroscopy with bilateral ureteral catheterization and retrograde ureteropyelography (separate procedure performed for the chronic renal insufficiency). 2. Interpretation of retrograde ureteropyelography. 3. Supervision of fluoroscopy, no radiologist present. 4. Cystourethroscopy with photoselective vaporization of the prostate utilizing the GreenLight laser (separate procedure performed) or obstructive BPH. ANESTHESIA: General. COMPLICATIONS: None. CLINICAL SUMMARY: Benito Sanz is a complicated 64-year-old man, who has had urinary retention. The patient was followed by his urologist at [facility] over a month ago. The patient underwent on September 18, 2019, two months ago, the patient underwent urodynamic study. This urodynamic study was felt to be not ideal due to the fact the patient aborted the procedure early due to discomfort. He did appear to have normal compliance, but also possibly have a bladder contraction noted, although of decreased intensity. The patient was supposed to have followed up to discuss the results of this test from 2 months ago, but apparently there was issue with scheduling due to the COVID-19 situation. The patient removed his Lanza catheter by himself at home, was unable to void, reported to the emergency room, was found to have to be ill, was admitted was ruled out for guzmán virus. The patient also had severe gross hematuria and his gross hematuria was managed with a continuous irrigation catheter. The patient also had a Lanza catheter balloon blown up in the urethra prior to starting on continuous irrigation. The patient was also extremely coagulopathic when he presented to the emergency room and this was also normalized. 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 The patient's daughter insisted and rightfully so, that steps be taken to the arrest this procedure penile damage process prior to the patient's discharge. The patient did not want a suprapubic cystostomy and cannot physically and mentally catheterize himself 5 times a day. The option of a transurethral resection procedure was offered to the patient and his daughter, they both desired to proceed. They understand risks of bleeding, infection, injury to adjacent structures, the risk of failure, need for prolonged catheterization and potential suprapubic catheterization as well. He also understands the risks of anesthesia, which were greatly elevated in this particularly chronically ill patient. He also understand that we are only performing necessary procedures during the COVID-19 emergency. The necessity of this procedure is absolutely justified with the fact that the patient's Lanza catheter has caused severe and active damage to his penis that his Lanza catheterization and the complications cause severe gross hematuria, they required transfusion during this hospitalization as well as hospitalization itself. Also, that gross hematuria could be indication of an ongoing situation such as bladder cancer. The patient and the daughter understood all these risks and they elected to proceed. OPERATIVE PROCEDURE IN DETAIL: Informed consent was verified, Benito Sanz was properly identified and taken to the operating room, placed on the cystoscopy table in supine position. Anesthesia was uneventfully begun. The patient was then carefully gently repositioned in dorsal lithotomy position with all pressure points well padded. His genitalia were prepared and draped in usual sterile fashion. The cystoscope sheath with the visual obturator in place was atraumatically inserted. The patient's urethra, was guided unremarkable distal urethra to the bulbar region where there was a blood clot residual remaining the sphincteric region. I believe this is where the Lanza catheter balloon was previously inflated. We went to the patient's prostate bed, which exhibited bilobar BPH with kissing lateral lobes and visual obstruction and a long prostatic urethra. We entered the patient's bladder, where panendoscopy revealed grade 2 to grade 3 trabeculations and cellule formation. There were calcifications diffusely upon the mucosa of the bladder consistent with chronic inflammatory process. No suspicious mucosal lesions were identified. The ureteral catheter was used to cannulate each ureter and retrograde ureteral pyelograms were performed. Interpretation of retrograde ureteropyelography, no radiologist present. There was severe tortuosity in a corkscrewing of the patient's distal left ureter with a chronic appearing left hydroureteronephrosis that was mild. No suspicious lesions were identified. No stones were identified. Unobstructed drainage was observed fluoroscopically. The right side exhibited a cutoff sign of the ureter and ending of the ureter at its midportion as a result of the prior the nephrectomy. No filling defects were appreciated in the right hand side. We then utilized a GreenLight laser to vaporize the prostate from the bladder neck to maneuver past the verumontanum. After delivering [id number] joules of energy over a total cumulative laser time of 21 minutes and 26 seconds. The patient had a wide open prostatic bed with excellent hemostasis. the cystoscope was then withdrawn. A large bore continuous irrigation Lanza catheter was then placed. It was irrigated to and fro to ensure it worked properly efflux and the catheter was completely clear. The belladonna and opium suppository were placed, revealing a large release 50 g prostate, smooth, nonfluctuant without any nodules. The patient was then uneventfully reversed from anesthesia and taken to recovery in stable condition. There were no complications to the procedure, the patient tolerated the procedure well. PLANS: Plan will be to have the patient continuous bladder irrigation. We are sure that the patient's urine is clear to anticoagulate the patient began as his medical condition necessitated it, and then we will plan on the patient being discharged to a snf facility as is currently planned. The patient was recommended to have ongoing urological followup, although we are experienced in the last 22 years is that the [facility] will not allow us to see our postoperative patients that we treat urgently due to their lack of coverage and availability in community hospitals in the area. Siddharth Schneider MD [place]/LORENA /[id number]
[2019-11-15] MEDS ORDERED: SODIUM CHLORIDE 0.9% 250ML 250 ML ONE (17:39)
[2019-11-15] MEDS: ACETAMINOPHEN/CODEINE 300MG - 30MG TAB PO PRN (18:06)
[2019-11-15] MEDS: MELATONIN 5 MG TABLET PO SCH (22:46)
[2019-11-16] VITALS (8 sets, daily range): BP systolic 104–142; BP diastolic 55–77
[2019-11-16] MEDS: ACETAMINOPHEN/CODEINE 300MG - 30MG TAB PO PRN ×4 (00:44→23:48)
[2019-11-16] MEDS: MORPHINE SULFATE 2 MG/ML SYR 1ML IV PRN (02:46)
[2019-11-16] MEDS: MEROPENEM 1GM 100 ML IV SCH ×2 (05:47→18:36)
[2019-11-16] MEDS: METOPROLOL TARTRATE 50 MG TAB PO SCH ×3 (05:54→23:01)
[2019-11-16 06:17] LABS: BASOPHILS % 0.3 % (0.0-1.0); EOSINOPHILS # (AUTO) 0.2 (0.0-0.4); EOSINOPHILS % 1.4 % (0.0-6.0); HEMATOCRIT 27.3 % (38.2-49.6); HEMOGLOBIN 8.4 g/dL (14.0-18.0); LYMPHOCYTES # (AUTO) 2.9 (1.0-3.2); LYMPHOCYTES % 21.1 % (18.0-39.1); MEAN CORPUSCULAR HEMOGLOBIN 26.8 pg (28-32); MEAN CORPUSCULAR HGB CONC 30.8 g/dL (31-35); MEAN CORPUSCULAR VOLUME 87.2 fL (81-99); MONOCYTES # (AUTO) 1.4 (0.2-0.8); MONOCYTES % 10.3 % (4.4-11.3); NEUTROPHILS # (AUTO) 9.1 (2.1-6.9); NEUTROPHILS % 65.4 % (38.7-80.0); PLATELET COUNT 517 x10e3/uL (140-360); RED BLOOD COUNT 3.13 x10e6/uL (4.3-5.7); RED CELL DISTRIBUTION WIDTH 14.8 % (11.7-14.4)
[2019-11-16] MEDS: AMITRIPTYLINE HCL 10 MG TAB PO SCH (07:56)
[2019-11-16] MEDS: PHENAZOPYRIDINE HCL 100 MG TAB PO SCH ×3 (07:56→17:19)
[2019-11-16] MEDS: LACTOBACILLUS ACIDOPHILUS CAPSULE PO SCH ×2 (07:56→17:19)
[2019-11-16] MEDS: TAMSULOSIN HCL 0.4 MG CAP PO SCH (07:56)
[2019-11-16] MEDS: ACETAMINOPHEN 325 MG TAB PO PRN (13:39)
[2019-11-16] MEDS: MELATONIN 5 MG TABLET PO SCH (20:19)
[2019-11-17] VITALS: BP 102/64
[2019-11-17 04:00] VITALS: BP 115/76
[2019-11-17] MEDS: ACETAMINOPHEN/CODEINE 300MG - 30MG TAB PO PRN (04:19)
[2019-11-17] MEDS: MEROPENEM 1GM 100 ML IV SCH ×2 (06:05→18:12)
[2019-11-17] MEDS: METOPROLOL TARTRATE 50 MG TAB PO SCH ×2 (06:07→18:12)
[2019-11-17 07:58] VITALS: BP 110/76
[2019-11-17 08:32] VITALS: BP 110/76
[2019-11-17] MEDS: AMITRIPTYLINE HCL 10 MG TAB PO SCH (09:01)
[2019-11-17] MEDS: PHENAZOPYRIDINE HCL 100 MG TAB PO SCH ×3 (09:01→18:12)
[2019-11-17] MEDS: LACTOBACILLUS ACIDOPHILUS CAPSULE PO SCH ×2 (09:01→18:12)
[2019-11-17] MEDS: TAMSULOSIN HCL 0.4 MG CAP PO SCH (09:01)
--- NOTE | 2019-11-17 09:37 | Progress Note ---
DATE: SUBJECTIVE: Mr. Sanz is a pleasant 64-year-old gentleman with complicated past medical history including BPH and urinary retention. The patient had pyelonephritis and UTI on this admission being treated with IV antibiotics. REVIEW OF SYSTEMS: Wants to go home. No nausea, vomiting, fever, chills, chest pain, or shortness of breath. The patient wants his Lanza catheter removed. OBJECTIVE: VITAL SIGNS: Temperature is 96.2, pulse is 96, respiratory rate 18, and blood pressure 110/76. MEDICATIONS: Medication list reviewed. As far as Infectious Disease point of view, the patient is on meropenem. LABORATORY STUDIES: White blood cells improved significantly to 13.96, hemoglobin is 8.4, platelet is 517. Creatinine 0.95. Sodium 134, potassium 4.9. Toxicology, no new finding. Serology, negative. So far his COVID-19 was negative on 11/06/2019. Microbiology, blood culture on 11/06/2019 and urine culture on 11/06/2019 negative so far. RADIOLOGY STUDIES: No recent radiology studies. PHYSICAL EXAMINATION: GENERAL: Alert and oriented, in no acute distress. CV: S1, S2. CHEST: Equal expansion. Clear to auscultation. No acute distress. ABDOMEN: Soft and nontender. No distention. HEENT: Moist. No pallor. No JVD. EXTREMITIES: Weak. The patient with Lanza cath and getting irrigated. ASSESSMENT AND PLAN: 1. Sepsis on admission, resolved. 2. Benign prostatic hypertrophy, status post transurethral resection of the prostate with a Lanza catheter and getting irrigated. Urology noted the plan is to remove Lanza cath today. 3. Urinary tract infection , on IV antibiotics. 4. Leukocytosis is improved significantly today from 18.45 on 11/16/2019. No new CBC from today available. 5. Debility. PT/OT per others. There is a postop day #3 for TURP. He remains on meropenem. Continue monitor the patient clinically, follow up with the labs. This was discussed with Dr. Juarez. Please refer to chart for more information. Dictated by Humphrey Murcia PA-C (Al) MD RAMEZ Dean/LOULOUL /[id number]
[2019-11-17 11:43] VITALS: BP 106/62
[2019-11-17 16:34] VITALS: BP 116/63
--- NOTE | 2019-11-17 22:14 | Discharge Summary ---
FINAL DIAGNOSIS: Acute blood loss anemia due to urethral trauma. SECONDARY DIAGNOSES: 1. Pneumonia present on admission. 2. Atrial fibrillation with rapid ventricular response, now rate controlled. 3. Acute kidney injury due to rhabdomyolysis, resolved. 4. Iron deficiency anemia. CONSULTANTS: 1. Dr. Schneider, Urology. 2. Dr. Juarez, Infectious Disease. 3. Dr. Olson, Pulmonary. 4. Dr. Roldan, Nephrology. 5. Dr. Martinez, Cardiology. PROCEDURES/STUDIES PERFORMED: 1. TURP. 2. Renal ultrasound. 3. Abdominal CT. HISTORY: Per H and P. HOSPITAL COURSE: The patient presented with urethral trauma after he tried to take his own Lanza catheter out at home. The patient required blood transfusion for that. The patient was on amiodarone drip for his atrial fibrillation with RVR. His anticoagulation was held. Initially, there were some suspicion for COVID. However, that was negative. Initially, the patient also had rhabdomyolysis causing acute kidney injury. Bicarb drip was started. This has resolved. The patient underwent TURP with Dr. Schneider. Subsequently, Lanza catheter was discontinued and the patient is urinating. The patient will need 2 weeks of mer[address]em per Dr. Juarez. Therefore, the patient was discharged to longterm home. Per Urology, the patient may resume Xarelto once he has no hematuria for 3 days. The patient will also need to follow up with [facility] urologist. CONDITION ON DISCHARGE: Improved. DISCHARGE MEDICATIONS: Please see medication reconciliation form. It took 35 minutes total to discharge this patient. MD DESI Welsh/LORENA /[id number]
== END 2019-11-17 18:45 | DRG 665 ==
LOC: ER 10:52 → ERHOLD 11:21 → ICU 15:42 → MED/SURG3 11-10 17:36 → MED/SURG 11-14 15:25
PROVIDERS: ADMIT Internal Medicine; ATTEND Internal Medicine
PROC: 8E0ZXY6 Isolation (ICD-10-PCS; 2019-11-06)
PROC: 30233N1 Transfusion of Nonautologous Red Blood Cells into Peripheral Vein, Percutaneous Approach (ICD-10-PCS; 2019-11-13)
PROC: 0V508ZZ Destruction of Prostate, Via Natural or Artificial Opening Endoscopic (ICD-10-PCS; 2019-11-14)
PROC: BT141ZZ Fluoroscopy of Kidneys, Ureters and Bladder using Low Osmolar Contrast (ICD-10-PCS; principal; 2019-11-14 12:53)
DX: T83.511A Infection and inflammatory reaction due to indwelling urethral catheter, initial encounter (principal); A41.9 Sepsis, unspecified organism; J18.9 Pneumonia, unspecified organism; R65.20 Severe sepsis without septic shock; G93.41 Metabolic encephalopathy; D62 Acute posthemorrhagic anemia; N17.9 Acute kidney failure, unspecified; M62.82 Rhabdomyolysis; E87.1 Hypo-osmolality and hyponatremia; S37.39XA Other injury of urethra, initial encounter; I48.20 Chronic atrial fibrillation, unspecified; N10 Acute pyelonephritis; N13.39 Other hydronephrosis; N13.8 Other obstructive and reflux uropathy; I13.0 Hypertensive heart and chronic kidney disease with heart failure and stage 1 through stage 4 chronic kidney disease, or unspecified chronic kidney disease; E87.6 Hypokalemia; N40.1 Benign prostatic hyperplasia with lower urinary tract symptoms; Z90.5 Acquired absence of kidney; E78.5 Hyperlipidemia, unspecified; F03.90 Unspecified dementia, unspecified severity, without behavioral disturbance, psychotic disturbance, mood disturbance, and anxiety; Y33.XXXA Other specified events, undetermined intent, initial encounter; I50.9 Heart failure, unspecified; Z79.01 Long term (current) use of anticoagulants; E78.00 Pure hypercholesterolemia, unspecified; Z85.528 Personal history of other malignant neoplasm of kidney; Q54.1 Hypospadias, penile; R53.81 Other malaise; R33.8 Other retention of urine; D50.9 Iron deficiency anemia, unspecified; N18.9 Chronic kidney disease, unspecified
CPT/HCPCS: 36415; 51700; 52648; 71045; 74178; 74420; 76770; 80048; 80053; 80061; 80162; 81001; 82550; 82553; 82728; 83036; 83540; 83605; 83735; 84100; 84443; 84466; 84484; 85014; 85018; 85025; 85610; 85730; 86850; 86900; 86920; 87040; 87086; 87633; 87635; 93005; 94760; 97139; 99285; C1758; J0692; J0696; J1100; J1160; J1650; J1756; J2001; J2060; J2185; J2270; J2370; J2405; J3010; J3370; J3480; J7030; J7050; J7060; J7070; P9016; Q9967